=== PATIENT | male | born 1980 | race Caucasian/White ===

== ENCOUNTER 2024-07-16 02:09 | Emergency (ER) | payer MEDICAID ==
[~2024-07-16] VITALS: Ht 170.2 cm; Wt 65.0 kg
[2024-07-16 02:14] VITALS: O2SAT 98
[2024-07-16 03:28] LABS: BASOPHILS % 0.6 % (0.0-2.0); EOSINOPHILS % 5.3 % (0.0-5.0); HEMATOCRIT. 35.3 % (42.0-52.0); HEMOGLOBIN. 10.5 g/dL (14.0-18.0); LYMPHOCYTES % 32.3 % (20.0-50.0); MEAN CORPUSCULAR HEMOGLOBIN 19.4 pg (28.0-32.0); MEAN CORPUSCULAR HGB CONC 29.7 g/dL (31.0-37.0); MEAN CORPUSCULAR VOLUME 65.4 fL (80.0-94.0); MEAN PLATELET VOLUME 7.5 fl (7.4-10.4); MONOCYTES % 12.2 % (2.0-8.0); NEUTROPHILS % 49.6 % (40.0-76.0); PLATELET 595 x1000/uL (130-400); RED CELL DISTRIBUTION WIDTH 22.3 % (11.6-14.6); WHITE BLOOD COUNT 7.4 x1000/uL (4.5-11.0)
[2024-07-16 03:29] LABS: CHLORIDE 106 mEq/L (98-107); SODIUM 143 mEq/L (136-145)
[2024-07-16 03:30] LABS: CALCIUM 10.2 mg/dL (8.7-10.4); CARBON DIOXIDE 27 mEq/L (21-32)
[2024-07-16 03:35] LABS: CREATININE 0.7 mg/dL (0.6-1.3); GLUCOSE 96 mg/dL (70-105); UREA NITROGEN BLOOD 21 mg/dL (9-23)
[2024-07-16 03:37] LABS: ACETAMINOPHEN < 2 ug/mL (10-30)
[2024-07-16 03:52] LABS: ADD RBC MORPHOLOGY YES; DIFFERENTIAL COMMENT 1; ETHANOL BLOOD < 10 mg/dL (<10)
[2024-07-16 04:44] LABS: *AMPHETAMINES SCREEN URINE PRESUMPTIVE POSITIVE (NEGATIVE); *BARBITURATES SCREEN URINE NEGATIVE (NEGATIVE); *BENZODIAZEPINES SCREEN URINE NEGATIVE (NEGATIVE); *COCAINE SCREEN URINE NEGATIVE (NEGATIVE); CLARITY URINE CLEAR (CLEAR); COLOR URINE DARK YELLOW (YELLOW); GLUCOSE URINE NEGATIVE (NEGATIVE); KETONES URINE NEGATIVE (NEGATIVE); LEUKOCYTE ESTERASE URINE NEGATIVE (NEGATIVE); NITRITE URINE NEGATIVE (NEGATIVE); OCCULT BLOOD URINE NEGATIVE (NEGATIVE); PH URINE 5.5 (4.5-8.0); PROTEIN URINE TRACE (NEGATIVE)
[2024-07-16 04:45] LABS: CANNABINOID URINE SCREEN PRESUMPTIVE POSITIVE (NEGATIVE); ECSTASY MDMA SCREEN URINE CONF.TEST INDICATED (NEGATIVE); METHADONE URINE SCREEN NEGATIVE (NEGATIVE); OPIATES URINE SCREEN NEGATIVE (NEGATIVE); PHENCYCLIDINE URINE SCREEN NEGATIVE (NEGATIVE)
[2024-07-16 05:38] LABS: SQUAMOUS EPITHELIAL CELL URINE NONE SEEN /lpf (RARE/1+)
[2024-07-16 05:39] LABS: BACTERIA URINE TRACE; CALCIUM OXALATE CRYSTALS URINE 2+ /lpf; WBC URINE 0-2 /hpf (0-2)
[2024-07-16 05:40] LABS: MUCUS URINE 1+ /lpf (NONE/TRACE)
[2024-07-16 06:29] LABS: ANISOCYTOSIS 2+; MICROCYTOSIS 3+; PLATELET ESTIMATE MARKEDLY INCREASED
[2024-07-18 00:20] VITALS: TEMP 36.7
[2024-07-18 04:30] VITALS: BP 105/70; PULSE 82; RESP 18; O2SAT 99
== END 2024-07-18 11:10 | disposition home or self-care (01) ==
LOC: ER 02:09
DX: R45.851 Suicidal ideations (principal); R44.0 Auditory hallucinations; F31.9 Bipolar disorder, unspecified; F17.200 Nicotine dependence, unspecified, uncomplicated; F12.10 Cannabis abuse, uncomplicated; F15.10 Other stimulant abuse, uncomplicated; Z20.822 Contact with and (suspected) exposure to COVID-19
CPT/HCPCS: 36415; 80048; 80305; 80307; 80320; 80329; 81003; 85025; 87426; 99285; G0480

== ENCOUNTER 2024-09-13 13:42 | Emergency (ER) | payer OTHER ==
[~2024-09-13] VITALS: Ht 177.8 cm; Wt 59.0 kg
[2024-09-13 13:46] VITALS: O2SAT 96
[2024-09-13] MEDS: SODIUM CHLORIDE 0.9% 1,000 ML IV ONE (14:05)
[2024-09-13 14:16] LABS: BASOPHILS % 0.5 % (0.0-2.0); DIFFERENTIAL COMMENT 1; EOSINOPHILS % 2.6 % (0.0-5.0); HEMATOCRIT. 37.5 % (42.0-52.0); HEMOGLOBIN. 11.6 g/dL (14.0-18.0); LYMPHOCYTES % 21.1 % (20.0-50.0); MEAN CORPUSCULAR VOLUME 67.8 fL (80.0-94.0); MEAN PLATELET VOLUME 8.7 fl (7.4-10.4); MONOCYTES % 7.4 % (2.0-8.0); NEUTROPHILS % 68.4 % (40.0-76.0); PLATELET 455 x1000/uL (130-400); RED BLOOD CELL COUNT 5.53 mill/uL (4.7-6.1); RED CELL DISTRIBUTION WIDTH 25.8 % (11.6-14.6); WHITE BLOOD COUNT 7.8 x1000/uL (4.5-11.0)
[2024-09-13 14:17] LABS: ADD RBC MORPHOLOGY YES
[2024-09-13 14:23] LABS: CHLORIDE 103 mEq/L (98-107); POTASSIUM 4.3 mEq/L (3.5-5.1); SODIUM 138 mEq/L (136-145)
[2024-09-13 14:24] LABS: CARBON DIOXIDE 28 mEq/L (21-32)
[2024-09-13 14:25] LABS: CALCIUM 9.5 mg/dL (8.7-10.4)
[2024-09-13 14:29] LABS: CREATININE 0.8 mg/dL (0.6-1.3); GLUCOSE 100 mg/dL (70-105); UREA NITROGEN BLOOD 19 mg/dL (9-23)
[2024-09-13 14:32] LABS: ANISOCYTOSIS 4+; MICROCYTOSIS 3+; PLATELET ESTIMATE INCREASED
[2024-09-13 14:43] LABS: TROPONIN I HIGH SENSITIVITY < 4 ng/L (3.0-53)
[2024-09-13] MEDS ORDERED: ACET-2708 MT (15:25)
[2024-09-13 17:20] VITALS: BP 107/77; PULSE 77; RESP 16; TEMP 36.7; O2SAT 100
== END 2024-09-13 17:33 ==
LOC: ER 13:42
DX: R55 Syncope and collapse (principal); E86.0 Dehydration; R07.81 Pleurodynia; F20.9 Schizophrenia, unspecified; F12.90 Cannabis use, unspecified, uncomplicated; F15.90 Other stimulant use, unspecified, uncomplicated
CPT/HCPCS: 99285; 96360; 71045; 80048; 85025; 84484; 36415; 93005; J7030